=== PATIENT | male | born 1970 | race Caucasian/White ===

== ENCOUNTER 2019-12-21 22:27 | Emergency (ER) | payer SELFPAY ==
[2019-12-21] MEDS ORDERED: Boostrix 0.5 ML VIAL ONE (22:59)
[2019-12-21] MEDS ORDERED: Ibuprofen 800 MG TAB ONE (23:04)
[2019-12-21] MEDS ORDERED: Acetaminophen 500 MG TAB ONE (23:46)
== END 2019-12-21 23:50 | disposition home or self-care (01) ==
LOC: ERS 22:27
DX: S61.011A Laceration without foreign body of right thumb without damage to nail, initial encounter (principal); E03.9 Hypothyroidism, unspecified; E78.5 Hyperlipidemia, unspecified; E78.00 Pure hypercholesterolemia, unspecified; Z79.899 Other long term (current) drug therapy; W45.8XXA Other foreign body or object entering through skin, initial encounter
CPT/HCPCS: 90471; 90715